=== PATIENT | male | born 1940 | race Caucasian/White ===

== ENCOUNTER 2016-08-02 08:49 | Day surgery (SDC) | payer MEDICARE, OTHER ==
--- NOTE | ~2016-08-02 | EGD ---
EGD REPORT [facility] [address] [place] [address] NAME: REN SHEEHAN : [birth year] STATUS : REG [facility]#: [id number] AGE: 75 ADM/REG DATE : 08/02/16 MR#: [id number] REPORT SERV DATE: 08/02/16 DICTATED BY: TRUE SIERRA DATE: 08/02/16 REPORT STATUS : Draft TRANS[facility]IBED BY: [facility] DATE: 08/02/16 End[facility] Center Patient Name: Ren Sheehan Date of : 1940 Attending MD: TRUE SIERRA MD Procedure Date No Time: 08/02/2016 Procedure: Colonoscopy Indications: High risk colon cancer surveillance: Personal history of colonic polyps, FH of Colon Cancer -distant relative Referring MD: LOS AKERS MD Medicines: as per anesthesia Complications: No immediate complications. Procedure: Pre-Anesthesia Assessment: - ASA Grade Assessment: II - A patient with mild systemic disease. After I obtained informed consent, the scope was passed under direct vision. Throughout the procedure, the patient's blood pressure, pulse, and oxygen saturations were monitored continuously. The [facility] [id number] was introduced through the anus and advanced to the cecum, identified by appendiceal orifice and ileocecal valve. The colonoscopy was performed without difficulty. The patient tolerated the procedure. The quality of the bowel preparation was adequate to identify polyps. Findings: The perianal and digital rectal examinations were normal. A sessile polyp was found in the ascending colon. The polyp was 6 mm in size. The polyp was removed with a jumbo cold forceps. Resection and retrieval were complete. A sessile polyp was found in the transverse colon. The polyp was 4 mm in size. The polyp was removed with a jumbo cold forceps. Resection and retrieval were complete. A sessile polyp was found in the sigmoid colon. The polyp was 4 mm in size. The polyp was removed with a jumbo cold forceps. Resection and retrieval were complete. A few small-mouthed diverticula were found in the descending colon and in the transverse colon. Internal hemorrhoids were found during endoscopy and were mild. Impression: - One 6 mm polyp in the ascending colon. Resected and retrieved. - One 4 mm polyp in the transverse colon. Resected and retrieved. - One 4 mm polyp in the sigmoid colon. Resected and EGD REPORT [address] [place]. [address] NAME: REN SHEEHAN : [birth year] STATUS : REG [facility] PAT#: [id number] AGE: 75 ADM/REG DATE : 08/02/16 MR#: [id number] REPORT SERV DATE: 08/02/16 DICTATED BY: TRUE SIERRA DATE: 08/02/16 REPORT STATUS : Draft TRANSCRIBED BY: [employer] DATE: 08/02/16 retrieved. - Diverticulosis in the descending colon and in the transverse colon. - Internal hemorrhoids. Recommendation: - Await pathology results. - Repeat colonoscopy for surveillance based on pathology results. Procedure Code(s): --- Professional --- 08596, Colonoscopy, flexible, proximal to splenic flexure; with biopsy, single or multiple Diagnosis Code(s): --- Professional --- D12.5, Benign neoplasm of sigmoid colon D12.3, Benign neoplasm of transverse colon D12.2, Benign neoplasm of ascending colon K64.8, Other hemorrhoids K57.30, Diverticulosis of large intestine without perforation or abscess without bleeding Z86.010, Personal history of colonic polyps Z80.0, Family history of malignant neoplasm of digestive organs CPT copyright 2013 [employer]. All rights reserved. The codes documented in this report are preliminary and upon mattress stripper review may be revised to meet current compliance requirements. TRUE SIERRA MD 08/02/2016 1:47 PM This report has been signed electronically. Number of Addenda: 0 Note Initiated On: 08/02/2016 1:20 PM Scope Withdrawal Time 0 hours 12 minutes 54 seconds [id number] [place] [address]
[~2016-08-02 08:49] MED LIST: ASAB PO; FISH OIL300 MG PO; TRIAMCINOLONE C80 GM TOP; VITAMIN D1000 UNI1 PO; ZYRTEC ALLGY10 MG PO
== END 2016-08-02 23:59 | disposition home health service (06) ==
LOC: DMU 08:49
PROVIDERS: Internal Medicine Gastroenterology
PROC: 0DBN8ZX Excision of Sigmoid Colon, Via Natural or Artificial Opening Endoscopic, Diagnostic (ICD-10-PCS; 2016-08-02)
PROC: 0DBL8ZX Excision of Transverse Colon, Via Natural or Artificial Opening Endoscopic, Diagnostic (ICD-10-PCS; 2016-08-02)
PROC: 0DBK8ZX Excision of Ascending Colon, Via Natural or Artificial Opening Endoscopic, Diagnostic (ICD-10-PCS; principal; 2016-08-02 11:00)
DX: D12.2 Benign neoplasm of ascending colon (principal); D12.3 Benign neoplasm of transverse colon; D12.5 Benign neoplasm of sigmoid colon; K64.8 Other hemorrhoids; K57.30 Diverticulosis of large intestine without perforation or abscess without bleeding; G47.30 Sleep apnea, unspecified; Z86.010 Personal history of colon polyps; Z80.0 Family history of malignant neoplasm of digestive organs; Z88.2 Allergy status to sulfonamides; Z87.891 Personal history of nicotine dependence; Z99.81 Dependence on supplemental oxygen; Z98.890 Other specified postprocedural states
CPT/HCPCS: 88305